=== PATIENT | female | born 1990 | race African-American/Black ===

== ENCOUNTER 2016-11-17 19:50 | Outpatient (CLI) | payer OTHER ==
[~2016-11-17] VITALS: Ht 170.2 cm; Wt 107.9 kg
[~2016-11-17 19:50] MED LIST: 12 HOUR DECONG120 M1 PO; ALBUTEROL SULF8.5 GM IH; ASPIR 8181 M1 PO; CEFACLOR500 MG PO; CEFDINIR300 MG PO; DIFLUCAN150 MG PO; FLAGYL500 MG PO; FLONASE16 G1 BOTH NARES; KEPPRA500 MG PO; KEPPRA750 MG PO; MACROBID100 MG PO; MOTRIN800 MG PO; MUCUS ER600 MG PO; NAPROSYN500 MG PO; NOHOMEMEDS; PERCOCET 5/31 TABLET PO; PRENAPLUS TABL1 EACH PO; PRENATABS RX T1 EACH PO; PRENATAL TABLE1 EAC3 PO; PRILOSEC40 MG PO; PROCARDIA20 MG PO; RISPERDAL1 MG PO; TOPAMAX; TOPAMAX PO; TRAMADOL HCL50 MG PO; TYLENOL WITH C1 EACH PO; ULTRACET1 TABLET PO; ULTRAM50 MG PO; ZITHROMAX500 MG PO; ZOFRAN ODT4 MG PO; ZOFRAN ODT8 MG PO; ZOFRAN4 MG PO
[2016-11-17 19:55] VITALS: BP 130/66
[2016-11-17 20:27] VITALS: BP 119/60
== END 2016-11-17 21:44 | disposition home or self-care (01) ==
LOC: LDRP-OP 19:50 → 2WEST 19:51
DX: O26.893 Other specified pregnancy related conditions, third trimester (principal); R10.30 Lower abdominal pain, unspecified; M54.9 Dorsalgia, unspecified; Z3A.30 30 weeks gestation of pregnancy; O09.213 Supervision of pregnancy with history of pre-term labor, third trimester
CPT/HCPCS: 59025; G0378

== ENCOUNTER 2016-11-27 11:38 | Inpatient (IN) | payer OTHER ==
[2016-11-27] VITALS (16 sets, daily range): BP systolic 103–135; BP diastolic 53–79
[~2016-11-27] VITALS: Ht 170.2 cm; Wt 108.2 kg
[2016-11-27] MEDS ORDERED: HYDROCODON-ACE1 EAC7 PO (13:02)
[2016-11-27] MEDS ORDERED: IBUPROFEN800 MG PO (13:02)
[2016-11-27 13:16] LABS: ADD MIUA? YES; BILIRUBIN NEGATIVE; BLOOD NEGATIVE; COLOR YELLOW ((YELLOW)); GLUCOSE (STRIP) NEGATIVE; KETONES NEGATIVE; LEUKOCYTES MODERATE; NITRITE NEGATIVE; PH, URINE 6.5 (5-8); PROTEIN (STRIP) NEGATIVE; SPECIFIC GRAVITY 1.017 (1.000-1.030)
[2016-11-27 13:39] LABS: BACTERIA NONE SEEN; CASTS NONE SEEN /LPF; CRYSTALS NONE SEEN; EPITHELIAL CELLS 1+; MUCUS 1+; RED BLOOD CELLS NONE SEEN /HPF (0-5); WHITE BLOOD CELLS 0-5 /HPF (0-5)
[2016-11-27 13:46] LABS: EOSINOPHIL (%) 1.2 % (0-5); EOSINOPHIL COUNT 0.1 K/uL (0-0.3); HEMATOCRIT 29.8 % (36.0-46.0); IMMATURE GRANULOCYTE (%) 0.3 % (0.0-0.7); LYMPHOCYTE COUNT 1.2 K/uL (1.0-2.8); MCH 27.7 PG (29.0-34.0); MCHC 34.2 G/DL (30.0-36.0); MEAN PLAT.VOLUME 12.6 uM^3 (9.5-12.4); MONOCYTE (%) 8.3 % (3-12); MONOCYTE COUNT 0.5 K/uL (0-0.8); NEUTROPHIL (%) 70.4 % (45-76); NEUTROPHIL COUNT 4.3 K/uL (1.8-6.4); PLATELET COUNT 83 K/uL (156-360); RBC DIS.WIDTH-CV 13.9 % (11.8-14.6); RBC DIS.WIDTH-SD 41.1 % (39-53); RED BLOOD COUNT 3.68 M/uL (3.80-5.20); WHITE BLOOD COUNT 6.1 K/uL (4.1-10.2)
[2016-11-27 14:59] LABS: AMPHETAMINES QUANT VALUE 0 NG/ML; BARBITUATES QUANT VALUE 0 NG/ML; BENZODIAZEPINES QUANT VALUE 0 NG/ML; BENZODIAZEPINES, URINE SCREEN Negative (200 ng/mL); MARIJUANA QUANT VALUE 0 NG/ML; OPIATES QUANTITATIVE VALUE 0 NG/ML; PHENCYCLIDINE QUANT VALUE 0 NG/ML
[2016-11-27 15:21] LABS: DRSB INTERNAL CONTROL PASS; PROBE CHECK PASS; SPECIMEN PROCESSING CONTROL PASS
[2016-11-27 21:08] LABS: UR CREATININE CONCENTRATION 161.2 MG/DL
[2016-11-28] VITALS (22 sets, daily range): BP systolic 101–143; BP diastolic 53–79
[2016-11-28 06:43] LABS: IRON 39 MCG/DL (35-150)
[2016-11-28] MEDS ORDERED: MAKENA250 MG/11 IM (16:49)
[2016-11-29] VITALS (7 sets, daily range): BP systolic 97–117; BP diastolic 52–59
[2016-11-29 06:31] LABS: EOSINOPHIL (%) 0 % (0-5); HEMATOCRIT 31.5 % (36.0-46.0); IMMATURE GRANULOCYTE (%) 0.7 % (0.0-0.7); IMMATURE GRANULOCYTE COUNT 0.1 K/uL; LYMPHOCYTE COUNT 0.9 K/uL (1.0-2.8); MCH 27.3 PG (29.0-34.0); MCV 82.7 FL (83-99); MEAN PLAT.VOLUME 12.3 uM^3 (9.5-12.4); MONOCYTE (%) 9.2 % (3-12); NEUTROPHIL (%) 81.2 % (45-76); NEUTROPHIL COUNT 8.7 K/uL (1.8-6.4); PLATELET COUNT 99 K/uL (156-360); RBC DIS.WIDTH-CV 14.3 % (11.8-14.6); RBC DIS.WIDTH-SD 42.5 % (39-53); RED BLOOD COUNT 3.81 M/uL (3.80-5.20)
[2016-11-29 06:32] LABS: WHITE BLOOD COUNT 10.7 K/uL (4.1-10.2)
[2016-11-30 02:56] VITALS: BP 94/50
[2016-11-30 07:41] VITALS: BP 128/63
[2016-11-30 10:56] VITALS: BP 117/62
[2016-11-30 11:03] LABS: EOSINOPHIL (%) 0.2 % (0-5); HEMATOCRIT 28.2 % (36.0-46.0); IMMATURE GRANULOCYTE (%) 1.4 % (0.0-0.7); IMMATURE GRANULOCYTE COUNT 0.1 K/uL; LYMPHOCYTE COUNT 1.7 K/uL (1.0-2.8); MCH 27.9 PG (29.0-34.0); MCHC 33.7 G/DL (30.0-36.0); MCV 82.9 FL (83-99); MEAN PLAT.VOLUME 12.1 uM^3 (9.5-12.4); MONOCYTE (%) 11.5 % (3-12); NEUTROPHIL COUNT 6.1 K/uL (1.8-6.4); PLATELET COUNT 85 K/uL (156-360); RBC DIS.WIDTH-CV 14.6 % (11.8-14.6); RBC DIS.WIDTH-SD 43.6 % (39-53)
[2016-11-30 11:57] LABS: CHLAMYDIA TRACHOMATIS NEGATIVE; NEISSERIA GONORRHOEAE NEGATIVE
== END 2016-11-30 16:49 | disposition home or self-care (01) | DRG 778 ==
LOC: LDRP-OP 11:38 → 2WEST 11:39 → LDRP-OP 02-21 22:13
PROVIDERS: Anesthesiology; Nurse Practitioner; Obstetrics & Gynecology
DX: O60.03 Preterm labor without delivery, third trimester (principal); Z3A.32 32 weeks gestation of pregnancy; O99.113 Other diseases of the blood and blood-forming organs and certain disorders involving the immune mechanism complicating pregnancy, third trimester; D69.6 Thrombocytopenia, unspecified; O23.43 Unspecified infection of urinary tract in pregnancy, third trimester; O99.013 Anemia complicating pregnancy, third trimester; D64.9 Anemia, unspecified; O99.333 Smoking (tobacco) complicating pregnancy, third trimester; F17.200 Nicotine dependence, unspecified, uncomplicated
CPT/HCPCS: 81003; 82570; 82607; 82746; 83540; 84156; 84460; 84466; 85025; 87081; 87491; 87591; 87653; J0702; J1756; J3420; J3475; J7050; J7120

== ENCOUNTER 2016-12-03 18:18 | Inpatient (IN) | payer OTHER ==
[~2016-12-03] VITALS: Ht 170.2 cm; Wt 106.8 kg
[~2016-12-03 18:18] MED LIST changes: +HYDROCODON-ACE1 EAC7 PO; +IBUPROFEN800 MG PO; +MAKENA250 MG/11 IM
[2016-12-03 18:40] VITALS: BP 128/75
[2016-12-03] MEDS ORDERED: GLYCOTROL CAPS1 EACH PO (18:50)
[2016-12-03] MEDS ORDERED: PROCARDIA10 MG PO (18:50)
[2016-12-03 19:25] LABS: EOSINOPHIL (%) 0.7 % (0-5); EOSINOPHIL COUNT 0.1 K/uL (0-0.3); HEMATOCRIT 31.9 % (36.0-46.0); IMMATURE GRANULOCYTE COUNT 0.1 K/uL; LYMPHOCYTE COUNT 1.8 K/uL (1.0-2.8); MCH 27.3 PG (29.0-34.0); MCHC 33.2 G/DL (30.0-36.0); MCV 82.2 FL (83-99); MONOCYTE (%) 8.1 % (3-12); MONOCYTE COUNT 0.8 K/uL (0-0.8); NEUTROPHIL (%) 70.8 % (45-76); NEUTROPHIL COUNT 6.6 K/uL (1.8-6.4); PLATELET COUNT 102 K/uL (156-360); RBC DIS.WIDTH-CV 14.6 % (11.8-14.6); RBC DIS.WIDTH-SD 42.3 % (39-53); RED BLOOD COUNT 3.88 M/uL (3.80-5.20); WHITE BLOOD COUNT 9.4 K/uL (4.1-10.2)
[2016-12-03 19:36] VITALS: BP 126/76
[2016-12-03 20:30] VITALS: BP 128/85
[2016-12-03 21:51] VITALS: BP 121/81
[2016-12-03 22:51] VITALS: BP 116/75
[2016-12-04] VITALS (11 sets, daily range): BP systolic 112–137; BP diastolic 54–81
[2016-12-04] MEDS ORDERED: IBUPROFEN800 MG PO (01:32)
[2016-12-05 06:37] LABS: EOSINOPHIL (%) 2.4 % (0-5); EOSINOPHIL COUNT 0.2 K/uL (0-0.3); HEMATOCRIT 29.8 % (36.0-46.0); IMMATURE GRANULOCYTE (%) 0.5 % (0.0-0.7); LYMPHOCYTE COUNT 2.1 K/uL (1.0-2.8); MCH 27.3 PG (29.0-34.0); MCHC 32.9 G/DL (30.0-36.0); MEAN PLAT.VOLUME 12.7 uM^3 (9.5-12.4); MONOCYTE (%) 7.1 % (3-12); MONOCYTE COUNT 0.6 K/uL (0-0.8); NEUTROPHIL (%) 62.6 % (45-76); NEUTROPHIL COUNT 4.9 K/uL (1.8-6.4); PLATELET COUNT 97 K/uL (156-360); RBC DIS.WIDTH-CV 14.8 % (11.8-14.6); RBC DIS.WIDTH-SD 43.4 % (39-53); RED BLOOD COUNT 3.59 M/uL (3.80-5.20); WHITE BLOOD COUNT 7.9 K/uL (4.1-10.2)
[2016-12-05 08:07] VITALS: BP 122/61
[2016-12-05 15:14] VITALS: BP 124/59
[2016-12-05 22:49] VITALS: BP 126/64
[2016-12-06 07:48] VITALS: BP 128/71
[2016-12-06 17:39] VITALS: BP 99/66
== END 2016-12-06 18:40 | disposition home or self-care (01) | DRG 775 ==
LOC: LDRP-OP 18:18 → 2WEST 18:19 → LDRP-OP 02-21 18:14
PROVIDERS: Nurse Practitioner
PROC: 10E0XZZ Delivery of Products of Conception, External Approach (ICD-10-PCS; principal; 2016-12-04)
PROC: 10907ZC Drainage of Amniotic Fluid, Therapeutic from Products of Conception, Via Natural or Artificial Opening (ICD-10-PCS; 2016-12-04)
DX: O26.873 Cervical shortening, third trimester (principal); O60.10X1 Preterm labor with preterm delivery, unspecified trimester, fetus 1; Z37.0 Single live birth; Z3A.32 32 weeks gestation of pregnancy; E66.9 Obesity, unspecified; O99.214 Obesity complicating childbirth; Z68.36 Body mass index [BMI] 36.0-36.9, adult; D50.9 Iron deficiency anemia, unspecified; O99.02 Anemia complicating childbirth
CPT/HCPCS: 85025; G0378; J7120

== ENCOUNTER 2017-04-24 06:59 | Emergency (ER) | payer OTHER ==
[~2017-04-24] VITALS: Ht 170.2 cm; Wt 93.6 kg
[~2017-04-24 06:59] MED LIST changes: +GLYCOTROL CAPS1 EACH PO; +IRON325 M1 PO; +PROCARDIA10 MG PO; +VITAMIN B-121000 MC1 SL
[2017-04-24 07:33] LABS: HEMATOCRIT 35.6 % (36.0-46.0); MCH 28.3 PG (29.0-34.0); MCV 83.4 FL (83-99); MEAN PLAT.VOLUME 11.5 uM^3 (9.5-12.4); PLATELET COUNT 132 K/uL (156-360); RBC DIS.WIDTH-CV 13.2 % (11.8-14.6); RBC DIS.WIDTH-SD 39.4 % (39-53); RED BLOOD COUNT 4.27 M/uL (3.80-5.20); WHITE BLOOD COUNT 6.7 K/uL (4.1-10.2)
[2017-04-24 07:49] LABS: CHLORIDE 109 mEq/L (99-109); POTASSIUM 3.4 mEq/L (3.7-5.4); SODIUM 142 mEq/L (136-147)
[2017-04-24 07:51] LABS: GLUCOSE 91 mg/dL (70-99)
[2017-04-24 07:53] LABS: ANION GAP 8 MEQ/L (2-14); TOTAL BILIRUBIN 0.9 mg/dL (0.0-1.0)
[2017-04-24 07:55] LABS: ALKALINE PHOSPHATASE 63 IU/L (3-129); GFR ESTIMATE (CALCULATED) > 59 mL/min/
[2017-04-24 07:56] LABS: UREA NITROGEN (BUN) 10 mg/dL (9-23)
[2017-04-24 07:58] LABS: LIPASE 12 U/L (1.0-51.0)
[2017-04-24 08:51] LABS: ADD MIUA? YES; BILIRUBIN NEGATIVE; BLOOD NEGATIVE; COLOR YELLOW ((YELLOW)); GLUCOSE (STRIP) NEGATIVE; KETONES 5; LEUKOCYTES TRACE; NITRITE NEGATIVE; PROTEIN (STRIP) 30; SPECIFIC GRAVITY 1.028 (1.000-1.030)
[2017-04-24 09:47] LABS: INTERNAL CONTROL VALID? YES
[2017-04-24 09:55] LABS: EPITHELIAL CELLS RARE /HPF; RED BLOOD CELLS NONE SEEN /HPF (0-5); WHITE BLOOD CELLS 0-5 /HPF (0-5)
[2017-04-24 09:56] LABS: BACTERIA NONE SEEN /HPF; CALCIUM OXALATE CRYSTALS 4+ /HPF; UCUL ADDED? NO
[2017-04-24 10:00] LABS: MUCUS 2+ /LPF
[2017-04-24] MEDS ORDERED: ZOFRAN ODT4 MG PO (10:20)
[2017-04-24 10:32] VITALS: BP 126/83
== END 2017-04-24 10:32 | disposition home or self-care (01) ==
LOC: EME 06:59
PROVIDERS: Nurse Practitioner Family
DX: R11.2 Nausea with vomiting, unspecified (principal); E87.6 Hypokalemia; D64.9 Anemia, unspecified; Z87.19 Personal history of other diseases of the digestive system; D69.6 Thrombocytopenia, unspecified; F32.9 Major depressive disorder, single episode, unspecified; R56.9 Unspecified convulsions; F17.200 Nicotine dependence, unspecified, uncomplicated; Z88.0 Allergy status to penicillin
CPT/HCPCS: 80053; 81003; 83690; 84703; 85027; 99281; 99284

== ENCOUNTER 2017-04-27 23:58 | Emergency (ER) | payer OTHER ==
[~2017-04-27] VITALS: Ht 170.2 cm; Wt 94.3 kg
[2017-04-28 01:02] LABS: MCH 28.1 PG (29.0-34.0); MCHC 33.1 G/DL (30.0-36.0); MCV 84.7 FL (83-99); MEAN PLAT.VOLUME 11.8 uM^3 (9.5-12.4); PLATELET COUNT 128 K/uL (156-360); RBC DIS.WIDTH-CV 13.2 % (11.8-14.6); RBC DIS.WIDTH-SD 40.7 % (39-53); RED BLOOD COUNT 4.13 M/uL (3.80-5.20); WHITE BLOOD COUNT 6.3 K/uL (4.1-10.2)
[2017-04-28 01:08] LABS: CHLORIDE 108 mEq/L (99-109); POTASSIUM 3.7 mEq/L (3.7-5.4); SODIUM 139 mEq/L (136-147)
[2017-04-28 01:10] LABS: GLUCOSE 103 mg/dL (70-99)
[2017-04-28 01:11] LABS: ANION GAP 8 MEQ/L (2-14)
[2017-04-28 01:13] LABS: ALKALINE PHOSPHATASE 61 IU/L (3-129)
[2017-04-28 01:14] LABS: GFR ESTIMATE (CALCULATED) > 59 mL/min/
[2017-04-28 01:15] LABS: UREA NITROGEN (BUN) 9 mg/dL (9-23)
[2017-04-28 01:17] LABS: LIPASE 25 U/L (1.0-51.0)
[2017-04-28 01:23] LABS: QUANTITATIVE HCG < 4.0 MIU/ML
[2017-04-28 01:24] LABS: TOTAL BILIRUBIN 0.6 mg/dL (0.0-1.0)
[2017-04-28 03:14] LABS: ADD MIUA? YES; BILIRUBIN NEGATIVE; BLOOD NEGATIVE; COLOR YELLOW ((YELLOW)); GLUCOSE (STRIP) NEGATIVE; KETONES NEGATIVE; LEUKOCYTES TRACE; NITRITE NEGATIVE; PROTEIN (STRIP) NEGATIVE; SPECIFIC GRAVITY 1.028 (1.000-1.030)
[2017-04-28] MEDS ORDERED: ZOFRAN ODT4 MG PO (03:16)
[2017-04-28] MEDS ORDERED: OMEPRAZOLE40 M1 PO (03:16)
[2017-04-28 03:17] LABS: BACTERIA RARE /HPF; EPITHELIAL CELLS RARE /HPF; MUCUS TRACE /LPF; RED BLOOD CELLS 0-5 /HPF (0-5); UCUL ADDED? NO; WHITE BLOOD CELLS 0-5 /HPF (0-5)
[2017-04-28 03:45] VITALS: BP 122/68
== END 2017-04-28 04:06 | disposition home or self-care (01) ==
LOC: EME 23:58
PROVIDERS: Physician Assistant
DX: R11.2 Nausea with vomiting, unspecified (principal); R10.13 Epigastric pain; R56.9 Unspecified convulsions; F17.200 Nicotine dependence, unspecified, uncomplicated
CPT/HCPCS: 74177; 80053; 81003; 83690; 84702; 85027; 99281; 99284; J2405; J7030; S0028

== ENCOUNTER 2017-05-13 23:18 | Emergency (ER) | payer OTHER ==
[~2017-05-13] VITALS: Ht 170.2 cm; Wt 93.7 kg
[~2017-05-13 23:18] MED LIST changes: +OMEPRAZOLE40 M1 PO
[2017-05-14] MEDS ORDERED: NAPROXEN500 MG PO (02:24)
[2017-05-14 03:14] VITALS: BP 108/68
== END 2017-05-14 03:17 | disposition home or self-care (01) ==
LOC: EME 23:18 → EXP 23:18
DX: S90.32XA Contusion of left foot, initial encounter (principal); W20.8XXA Other cause of strike by thrown, projected or falling object, initial encounter; F17.200 Nicotine dependence, unspecified, uncomplicated
CPT/HCPCS: 73630; 99281; 99283

== ENCOUNTER 2017-06-02 23:55 | Emergency (ER) | payer OTHER ==
[~2017-06-02] VITALS: Ht 170.2 cm; Wt 91.5 kg
[~2017-06-02 23:55] MED LIST changes: +NAPROXEN500 MG PO
[2017-06-03 00:30] LABS: HEMATOCRIT 34.3 % (36.0-46.0); MCH 28.4 PG (29.0-34.0); MCHC 33.8 G/DL (30.0-36.0); MCV 84.1 FL (83-99); MEAN PLAT.VOLUME 11.5 uM^3 (9.5-12.4); PLATELET COUNT 141 K/uL (156-360); RBC DIS.WIDTH-CV 12.3 % (11.8-14.6); RBC DIS.WIDTH-SD 37.1 % (39-53); RED BLOOD COUNT 4.08 M/uL (3.80-5.20); WHITE BLOOD COUNT 6.7 K/uL (4.1-10.2)
[2017-06-03 00:32] LABS: ADD MIUA? NO; BILIRUBIN NEGATIVE; BLOOD NEGATIVE; COLOR YELLOW ((YELLOW)); GLUCOSE (STRIP) NEGATIVE; KETONES NEGATIVE; LEUKOCYTES NEGATIVE; NITRITE NEGATIVE; PROTEIN (STRIP) NEGATIVE; SPECIFIC GRAVITY 1.011 (1.000-1.030); UCUL ADDED? NO
[2017-06-03 00:40] LABS: CHLORIDE 107 mEq/L (99-109); POTASSIUM 3.7 mEq/L (3.7-5.4); SODIUM 142 mEq/L (136-147)
[2017-06-03 00:42] LABS: GLUCOSE 85 mg/dL (70-99)
[2017-06-03 00:43] LABS: ANION GAP 7 MEQ/L (2-14)
[2017-06-03 00:44] LABS: TOTAL BILIRUBIN 0.7 mg/dL (0.0-1.0)
[2017-06-03 00:45] LABS: ALKALINE PHOSPHATASE 66 IU/L (3-129)
[2017-06-03 00:46] LABS: GFR ESTIMATE (CALCULATED) > 59 mL/min/
[2017-06-03 00:47] LABS: UREA NITROGEN (BUN) 8 mg/dL (9-23)
[2017-06-03 00:58] LABS: QUANTITATIVE HCG < 4.0 MIU/ML
[2017-06-03 03:40] VITALS: BP 119/60
== END 2017-06-03 03:41 | disposition home or self-care (01) ==
LOC: EME 23:55
DX: R10.10 Upper abdominal pain, unspecified (principal); R11.2 Nausea with vomiting, unspecified; R51 Headache; K57.30 Diverticulosis of large intestine without perforation or abscess without bleeding; F17.200 Nicotine dependence, unspecified, uncomplicated
CPT/HCPCS: 74176; 80053; 81003; 84702; 85027; 99281; 99284

== ENCOUNTER 2017-09-02 00:09 | Emergency (ER) | payer OTHER ==
[~2017-09-02] VITALS: Ht 170.2 cm; Wt 94.3 kg
[2017-09-02 00:33] LABS: HEMATOCRIT 35.6 % (36.0-46.0); MCH 28.3 PG (29.0-34.0); MCHC 33.4 G/DL (30.0-36.0); MCV 84.8 FL (83-99); PLATELET COUNT 147 K/uL (156-360); RBC DIS.WIDTH-CV 13.1 % (11.8-14.6); RBC DIS.WIDTH-SD 39.8 % (39-53); WHITE BLOOD COUNT 7.9 K/uL (4.1-10.2)
[2017-09-02 01:00] LABS: CHLORIDE 106 mEq/L (99-109); POTASSIUM 3.9 mEq/L (3.7-5.4); SODIUM 141 mEq/L (136-147)
[2017-09-02 01:02] LABS: GLUCOSE 93 mg/dL (70-99)
[2017-09-02 01:03] LABS: ANION GAP 8 MEQ/L (2-14)
[2017-09-02 01:06] LABS: GFR ESTIMATE (CALCULATED) > 59 mL/min/; UREA NITROGEN (BUN) 9 mg/dL (9-23)
[2017-09-02 01:15] LABS: QUANTITATIVE HCG < 4.0 MIU/ML
[2017-09-02] MEDS ORDERED: ANUSOL-HC21 GM PR (01:18)
[2017-09-02 01:38] VITALS: BP 133/99
== END 2017-09-02 01:44 | disposition home or self-care (01) ==
LOC: EME 00:09
DX: K64.4 Residual hemorrhoidal skin tags (principal); K62.5 Hemorrhage of anus and rectum; F17.200 Nicotine dependence, unspecified, uncomplicated
CPT/HCPCS: 80048; 84702; 85027; 86850; 86900; 86901; 99281; 99282

== ENCOUNTER 2017-12-12 02:09 | Emergency (ER) | payer OTHER ==
[~2017-12-12] VITALS: Ht 170.2 cm; Wt 90.4 kg
[~2017-12-12 02:09] MED LIST changes: +ANUSOL-HC21 GM PR
[2017-12-12 02:43] LABS: HEMATOCRIT 36.8 % (36.0-46.0); HEMOGLOBIN 12.7 G/DL (11.9-15.5); MCH 28.8 PG (29.0-34.0); MCHC 34.5 G/DL (30.0-36.0); MCV 83.4 FL (83-99); PLATELET COUNT 135 K/uL (156-360); RBC DIS.WIDTH-CV 12.9 % (11.8-14.6); RBC DIS.WIDTH-SD 39.1 % (39-53); RED BLOOD COUNT 4.41 M/uL (3.80-5.20); WHITE BLOOD COUNT 8.6 K/uL (4.1-10.2)
[2017-12-12 02:50] LABS: ALBUMIN 4.2 g/dL (3.2-4.8); CHLORIDE 108 mEq/L (99-109); POTASSIUM 3.8 mEq/L (3.7-5.4); SODIUM 139 mEq/L (136-147)
[2017-12-12 02:53] LABS: GLUCOSE 96 mg/dL (70-99); TOTAL PROTEIN 6.9 g/dL (6.4-8.3)
[2017-12-12 02:55] LABS: TOTAL BILIRUBIN 1.5 mg/dL (0.0-1.0)
[2017-12-12 02:56] LABS: ALKALINE PHOSPHATASE 87 IU/L (3-129); CREATININE 0.7 mg/dL (0.6-1.3); GFR ESTIMATE (CALCULATED) > 59 mL/min/
[2017-12-12 02:57] LABS: UREA NITROGEN (BUN) 7 mg/dL (9-23)
[2017-12-12 02:58] LABS: AST (GOT) 13 IU/L (2-34)
[2017-12-12 02:59] LABS: ALT (GPT) 12 IU/L (3-49)
[2017-12-12 03:00] LABS: LIPASE 11 U/L (1.0-51.0)
[2017-12-12 03:05] LABS: QUANTITATIVE HCG < 4.0 MIU/ML
[2017-12-12 05:49] LABS: APPEARANCE CLEAR ((CLEAR)); BILIRUBIN NEGATIVE; BLOOD NEGATIVE; COLOR YELLOW ((YELLOW)); GLUCOSE (STRIP) NEGATIVE; KETONES NEGATIVE; LEUKOCYTES NEGATIVE; NITRITE NEGATIVE; PROTEIN (STRIP) NEGATIVE; UCUL ADDED? NO; UROBILINOGEN 0.2 MG/DL (0.2-1.0)
[2017-12-12] MEDS ORDERED: ZOFRAN ODT4 MG PO (05:57)
[2017-12-12] MEDS ORDERED: BENTYL20 MG PO (05:57)
[2017-12-12 05:58] LABS: SPECIFIC GRAVITY 1.097 (1.000-1.030)
[2017-12-12 07:10] VITALS: BP 113/59
== END 2017-12-12 07:12 | disposition home or self-care (01) ==
LOC: EME 02:09
DX: K52.9 Noninfective gastroenteritis and colitis, unspecified (principal); N83.201 Unspecified ovarian cyst, right side; R56.9 Unspecified convulsions; F17.200 Nicotine dependence, unspecified, uncomplicated; F32.9 Major depressive disorder, single episode, unspecified; Z87.19 Personal history of other diseases of the digestive system; Z86.73 Personal history of transient ischemic attack (TIA), and cerebral infarction without residual deficits; Z88.5 Allergy status to narcotic agent; Z88.1 Allergy status to other antibiotic agents; Z88.0 Allergy status to penicillin
CPT/HCPCS: 74177; 76705; 80053; 81003; 83690; 84702; 85027; 99281; 99285; J2405; J3010; J7030

== ENCOUNTER 2018-06-08 22:31 | Emergency (ER) | payer OTHER ==
[~2018-06-08] VITALS: Ht 170.2 cm; Wt 85.3 kg
[~2018-06-08 22:31] MED LIST changes: +BENTYL20 MG PO
[2018-06-09 02:37] VITALS: BP 126/92
== END 2018-06-09 02:38 | disposition home or self-care (01) ==
LOC: EME 22:31
PROC: 0HQFXZZ Repair Right Hand Skin, External Approach (ICD-10-PCS; principal; 2018-06-08)
DX: S61.214A Laceration without foreign body of right ring finger without damage to nail, initial encounter (principal); W25.XXXA Contact with sharp glass, initial encounter; Y93.89 Activity, other specified; Z88.0 Allergy status to penicillin; Z88.1 Allergy status to other antibiotic agents; Z88.6 Allergy status to analgesic agent; Z88.5 Allergy status to narcotic agent; Z88.8 Allergy status to other drugs, medicaments and biological substances